=== PATIENT | female | born 1965 | race Caucasian/White ===

== ENCOUNTER → 2019-06-30 | Outpatient (CLI) | payer OTHER ==
--- NOTE | 2019-06-30 17:21 | Diagnostic Imaging Report ---
Thyroid ultrasound History: Thyroid nodule Comparison: None Findings: The thyroid echotexture is heterogeneous. Vascularity is normal. The right lobe measures 3.7 x 1.6 x 1.4 cm. The left lobe measures 3.9 x 1.8 x 1.7 cm. The isthmus measures 0.4 cm. Nodules (measurements are AP, transverse, craniocaudal): Right Lobe: No cystic mass or discrete solid nodule identified. Left Lobe: Mid pole 1.5 x 0.7 x 1.1 cm well-circumscribed, wider than tall, hyperechoic (1 point) solid (2 points) nodule without internal calcifications. Isthmus: No cystic mass or discrete solid nodule identified. Lymph Nodes: No cervical lymph nodes are identified. Parathyroids: Not visualized. IMPRESSION: Left thyroid lobe midpole 1.5 x 0.7 x 1.1 cm hyperechoic nodule (TI-RADS3) RECOMMENDATIONS: Followup thyroid ultrasound at 1, 3, and 5 years. ACR glossary of thyroid rads TI-RADS 1: No focal lesion. TI-RADS 2: Not suspicious. TI-RADS 3: Mildly suspicious (recommend FNA is greater than or equal to 2.5 cm; follow-up at 1, 3, and 5 years if greater than or equal to 1.5 cm) TI-RADS 4: Moderately Suspicious (recommend FNA is greater than or equal to 1.5 cm; follow-up at 1, 2, 3, and 5 years) TI-RADS 5: Highly suspicious (recommend FNA is greater than or equal to 10 mm) TI-RADS 6: Biopsy-proven malignancy Signed by: Tin Lucas MD on 06/30/2019 5:18 PM
== END ==
LOC: US 07:19
PROVIDERS: ATTEND Family Medicine
DX: E07.89 Other specified disorders of thyroid (principal)
CPT/HCPCS: 76536